=== PATIENT | female | born 1990 | race Caucasian/White ===

== ENCOUNTER → 2018-07-08 | Outpatient (CLI) | payer OTHER, BC ==
--- NOTE | 2018-07-08 13:37 | US ---
EXAMINATION TYPE: US pelvis complete transvag DATE OF EXAM: 07/08/2018 COMPARISON: NONE CLINICAL HISTORY: Pelvic pain and N94.6 dysmenorrhea. TECHNIQUE: Transvaginal (TV) and Transabdominal (TA) . Date of LMP: 06/22/2018 EXAM MEASUREMENTS: Uterus: 7.7 x 3.9 x 4.3 cm Endometrial Stripe: 0.8 cm Right Ovary: 2.7 x 1.5 x 1.6 cm Left Ovary: 2.7 x 1.6 x 1.9 cm 1. Uterus: Anteverted wnl 2. Endometrium: wnl 3. Right Ovary: wnl 4. Left Ovary: wnl 5. Bilateral Adnexa: wnl 6. Posterior cul-de-sac: no free fluid IMPRESSION: Unremarkable pelvic ultrasound. Endometrial thickness is within normal limits.
== END ==
LOC: RADUSWWP 12:50
PROVIDERS: ATTEND Family Medicine
DX: N94.6 Dysmenorrhea, unspecified (principal)
CPT/HCPCS: 76830; 76856

== ENCOUNTER 2023-08-10 06:15 | Inpatient (IN) | payer BC ==
[2023-08-10] MEDS ORDERED: TERBUTALINE 1 MG/ML VIAL SQ PRN (06:31)
[2023-08-10] MEDS ORDERED: TRANEXAMIC 1,000 MG/100ML-NACL 1,000 MG in EMPTY BAG 1 BAG IV PRN (06:31)
[2023-08-10] MEDS ORDERED: OXYTOCIN 10 UNIT/ML 1 ML VIAL IM PRN (06:31)
[2023-08-10] MEDS ORDERED: miSOPROStoL 200 MCG TAB PO PRN (06:31)
[2023-08-10] MEDS ORDERED: CARBOPROST TROMETHAMINE 250 MCG/ML 1 ML AMP IM PRN (06:31)
[2023-08-10] MEDS ORDERED: METHYLERGONOVINE 0.2 MG/ML 1 ML AMP IM PRN (06:31)
[2023-08-10] MEDS ORDERED: LIDOCAINE 0.5% (PF) 5 MG/ML (50 ML SDV) SQ PRN (06:31)
[2023-08-10] MEDS: LACTATED RINGERS 1,000 ML IV SCH (06:41)
[2023-08-10] MEDS: OXYTOCIN 30 UNITS/500 ML NS 30 UNIT in SALINE 1 500ML.BAG IV SCH (06:45)
[2023-08-10 06:55] LABS: Basophils % (A) 0 %; Eosinophils # (A) 0.1 k/uL (0-0.7); Eosinophils % (A) 1 %; HCT 38.3 % (34.0-46.0); HGB 13.2 gm/dL (11.4-16.0); Lymphocytes # (A) 2.1 k/uL (1.0-4.8); Lymphocytes % (A) 24 %; MCH 33.4 pg (25.0-35.0); MCHC 34.4 g/dL (31.0-37.0); MCV 97.1 fL (80.0-100.0); Mean Platelet Volume 8.6; Monocytes # (A) 0.5 k/uL (0-1.0); Monocytes % (A) 6 %; Neutrophils % (A) 69 %; Platelet Count 166 k/uL (150-450); RBC 3.94 m/uL (3.80-5.40); WBC 8.7 k/uL (3.8-10.6)
[2023-08-10] MEDS ORDERED: ZOLPIDEM 5 MG TAB PO PRN (10:21)
[2023-08-10] MEDS ORDERED: LANOLIN CREAM 1 GM TUBE TOPICAL PRN (10:21)
[2023-08-10] MEDS ORDERED: BENZOCAINE/MENTHOL SPRAY 1 GM/SPRAY AEROSOL TOPICAL PRN (10:21)
[2023-08-10] MEDS ORDERED: diphenhydrAMINE 25 MG CAP PO PRN (10:21)
[2023-08-10] MEDS ORDERED: SIMETHICONE 80 MG CHEWABLE PO PRN (10:21)
[2023-08-10] MEDS ORDERED: diphenhydrAMINE 50 MG CAP PO PRN (10:21)
[2023-08-10] MEDS ORDERED: diphenhydrAMINE 50 MG/ML 1 ML VIAL IVP PRN ×2 (10:21)
[2023-08-10] MEDS ORDERED: HYDROCORTISONE 2.5% RECTAL CREAM 30 GM TUBE RECTAL PRN (10:21)
[2023-08-10] MEDS: IBUPROFEN IV 800 MG in SODIUM CHLORIDE 0.9% 250 ML IV ONE (10:58)
--- NOTE | 2023-08-10 12:04 | P.PROBDLV ---
Vaginal Delivery Note - . Vaginal Delivery Note: Viable female delivered at 958, weight of 5 pounds 15.2 ounces, 2700 g 32-year-old G2, P1 at 39-2/7 weeks presents for induction of labor. Patient was admitted and Pitocin induction of labor was begun. Patient underwent amniotomy and thin meconium stained fluid was appreciated. Patient made quick progress toward complete. Patient initially had requested epidural but was noted to be completely dilated. Patient began pushing and had a normal spontaneous vaginal delivery of a viable female at 958, weight of 5 pounds 15.2 ounces. Apgars of 9 and 9 at 1 and 5 minutes respectively. After 2-minute delay the umbilical cord was doubly clamped and cut and the placenta was delivered spontaneously intact with a three-vessel cord being noted. On inspection the patient's vaginal vault no lacerations were appreciated. A large gush of blood was appreciated with fundal massage bleeding decreased and the uterus firmed. All counts were noted to be correct x 2 at the end of the delivery. Patient and tolerated delivery well and are resting com fortably.
--- NOTE | 2023-08-10 12:06 | P.HPOB ---
History of Present Illness H&P Date: 08/10/23 Chief Complaint: IUP at 39-2/7 weeks 32-year-old G4, P1021 at 39-2/7 weeks presents to labor and delivery for scheduled induction of labor. Patient has been receiving routine care with myself which has been essentially uncomplicated. 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 Patient notes an occasional contraction denies vaginal bleeding, or loss of fluid On blood work this patient is a blood type of O+, rubella immune, hepatitis B surface engine negative, HIV negative, RPR is nonreactive, grew beta strep culture is negative. Review of Systems Constitutional: Denies chills, Denies fatigue, Denies fever Ears, nose, mouth and throat: Denies headache Cardiovascular: Reports leg edema Respiratory: Denies dyspnea Gastrointestinal: Denies constipation, Denies diarrhea, Denies nausea, Denies vomiting Genitourinary: Reports Past Medical History Past Medical History: GERD/Reflux Additional Past Medical History / Comment(s): Balanced autosomal translocation, migraines History of Any Multi-Drug Resistant Organisms: None Reported Additional Past Surgical History / Comment(s): D/C, Past Anesthesia/Blood Transfusion Reactions: No Reported Reaction Past Psychological History: Anxiety, Depression Smoking Status: Never smoker Medications and Allergies Home Medications Medication Instructions Recorded Confirmed Type Citalopram Hydrobromide [CeleXA] 40 mg PO 08/10/23 History Omeprazole [PriLOSEC] 08/10/23 History buPROPion HCL [buPROPion HCL XL] 300 mg PO 08/10/23 History Allergies Allergy/AdvReac Type Severity Reaction Status Date / Time No Known Allergies Allergy Verified 08/10/23 06:28 Exam Osteopathic Statement: *. No significant issues noted on an osteopathic structural exam other than those noted in the History and Physical/Consult. Vital Signs Temp Pulse Resp BP 08/10/23 11:41 57 L 16 118/67 08/10/23 11:26 98.1 F 63 16 119/59 08/10/23 11:05 60 16 125/63 08/10/23 10:52 63 16 133/62 08/10/23 10:41 61 16 123/59 08/10/23 10:26 62 16 121/79 Intake and Output 08/09/23 08/10/23 08/10/23 22:59 06:59 14:59 Other: Weight 99.79 kg Targeted physical exam is performed this date General is well-nourished well- developed female in no acute distress, breathing is nonlabored, heart has a regular rhythm, abdomen is gravid, on cervical exam she is 4/70/-2 station vertex presentation, heart tones are noted to be category 1 and she is jozef irregularly. Results Result Diagrams: 08/10/23 06:29 Assessment and Plan (1) Term Current Visit: Yes Status: Acute Code(s): Z34.90 - ENCNTR FOR SUPRVSN OF NORMAL , UNSP, UNSP TRIMESTER SNOMED Code(s): 76149603 Plan: 32-year-old G4, P1021 at 39-2/7 weeks presents for induction of labor. Patient is admitted and Pitocin induction of labor was begun per hospital protocol. Amniotomy is performed and thin meconium stained fluid is appreciated. Options for analgesia are discussed including Nubain, nitrous, epidural. Patient will consider.
[2023-08-10] MEDS: SENNOSIDES-DOCUSATE SODIUM 1 EACH TAB PO SCH (21:45)
[2023-08-10] MEDS: IBUPROFEN 600 MG TAB PO SCH (21:46)
[2023-08-11 08:13] LABS: Basophils % (A) 0 %; Eosinophils # (A) 0.1 k/uL (0-0.7); Eosinophils % (A) 1 %; HCT 35.5 % (34.0-46.0); HGB 11.8 gm/dL (11.4-16.0); Lymphocytes # (A) 2.5 k/uL (1.0-4.8); Lymphocytes % (A) 24 %; MCH 32.9 pg (25.0-35.0); MCHC 33.2 g/dL (31.0-37.0); Mean Platelet Volume 8.6; Monocytes # (A) 0.6 k/uL (0-1.0); Monocytes % (A) 5 %; Neutrophils # (A) 7.2 k/uL (1.3-7.7); Neutrophils % (A) 69 %; Platelet Count 158 k/uL (150-450); RBC 3.58 m/uL (3.80-5.40); RDW 13.2 % (11.5-15.5); WBC 10.5 k/uL (3.8-10.6)
[2023-08-11] MEDS: ACETAMINOPHEN TAB 325 MG TAB PO PRN (08:38)
[2023-08-11 09:07] VITALS: RESP 18
[2023-08-11] MEDS: PROPRANOLOL 20 MG TAB PO SCH (09:53)
[2023-08-11] MEDS: CITALOPRAM HYDROBROMIDE 20 MG TAB PO SCH (09:53)
[2023-08-11] MEDS: buPROPion XL 300 MG TAB.ER.24H PO SCH (09:53)
[2023-08-11] MEDS: PANTOPRAZOLE 40 MG TABLET PO SCH (09:53)
[2023-08-11 12:30] VITALS: BP 121/73; PULSE 55; TEMP 98.2
--- NOTE | 2023-08-11 13:17 | P.DS ---
Providers Date of admission: 08/10/23 06:17 Expected date of discharge: 08/11/23 Attending physician: Marci Tobar Primary care physician: Stated None - Discharge Diagnosis(es) (1) Term Current Visit: Yes Status: Acute (2) Status post normal vaginal delivery Current Visit: Yes Status: Acute Hospital Course: This is a 32-year-old -0-2-2 that presented to labor and delivery yesterday for scheduled induction of labor. Patient had been receiving routine care which had been essentially uncomplicated. 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 Patient was admitted to labor and delivery and Pitocin induction of labor was begun. Patient underwent amniotomy. Patient quickly progressed to complete began pushing and had a normal spontaneous vaginal delivery of a viable female infant at 958, weight of 5 pounds 15.2 ounces, Apgars of 9 and 9 at 1 and 5 minutes respectively. Patient did not sustain a vaginal laceration during delivery. Patient has done well . She is ambulating and voiding without difficulty. She is tolerating a regular diet without nausea or vomiting. States her pain is well-controlled. Her lochia is minimal to moderate. She is breast-feeding without difficulty. Patient Condition at Discharge: Good Plan - Discharge Summary New Discharge Prescriptions: No Action buPROPion HCL [buPROPion HCL XL] 300 mg PO Omeprazole [PriLOSEC] Citalopram Hydrobromide [CeleXA] 40 mg PO Discharge Medication List Citalopram Hydrobromide [CeleXA] 40 mg PO 08/10/23 [History] Omeprazole [PriLOSEC] 08/10/23 [History] buPROPion HCL [buPROPion HCL XL] 300 mg PO 08/10/23 [History] Follow up Appointment(s)/Referral(s): Marci Tobar DO [Doctor of Osteopathic Medicine] - 1 Week Patient Instructions/Handouts: Vaginal Delivery (DC), Vaginal Delivery (GEN) Activity/Diet/Wound Care/Special Instructions: No intercourse, tampons or douching. No heavy lifting greater than a gallon of milk. No driving for two weeks. Call with any fever, shakes or chills, with any pain not alleviated by over the counter meds, or with any quesions or concerns. Discharge Disposition: HOME SELF-CARE
== END 2023-08-11 15:00 | disposition home or self-care (01) | DRG 807 ==
LOC: 4FBP 06:17
PROVIDERS: ADMIT Obstetrics & Gynecology Obstetrics; ATTEND Obstetrics & Gynecology Obstetrics
PROC: 10E0XZZ Delivery of Products of Conception, External Approach (ICD-10-PCS; principal; 2023-08-10)
PROC: 3E033VJ Introduction of Other Hormone into Peripheral Vein, Percutaneous Approach (ICD-10-PCS; 2023-08-10)
PROC: 10907ZC Drainage of Amniotic Fluid, Therapeutic from Products of Conception, Via Natural or Artificial Opening (ICD-10-PCS; 2023-08-10)
DX: O77.0 Labor and delivery complicated by meconium in amniotic fluid (principal); Z37.0 Single live birth; O99.344 Other mental disorders complicating childbirth; F32.A Depression, unspecified; O99.62 Diseases of the digestive system complicating childbirth; K21.9 Gastro-esophageal reflux disease without esophagitis; Z28.310 Unvaccinated for COVID-19; Z3A.39 39 weeks gestation of pregnancy; F41.9 Anxiety disorder, unspecified; Z79.899 Other long term (current) drug therapy
CPT/HCPCS: 85025; 86850; 86900; 86901